=== PATIENT | female | born 1965 | race Caucasian/White ===

== ENCOUNTER 2024-01-06 13:50 | Outpatient (CLI) | payer OTHER, SELFPAY | END 2024-01-06 13:51 | disposition home or self-care (01) | PROVIDERS: Visit Provider Registered Nurse | DX: Z01.419 Encounter for gynecological examination (general) (routine) without abnormal findings (principal); N92.0 Excessive and frequent menstruation with regular cycle; Z13.6 Encounter for screening for cardiovascular disorders; Z13.1 Encounter for screening for diabetes mellitus; Z13.9 Encounter for screening, unspecified | CPT/HCPCS: 80061; 82728; 82947; 83540; 83550; 84443 ==

== ENCOUNTER 2024-01-14 15:36 | Outpatient (CLI) | payer OTHER, SELFPAY ==
--- NOTE | 2024-01-14 16:00 | US_ITS ---
Patient: GENET MOLINA Facility:?[facility] RIS Patient ID:?[id number] Site Patient ID:?[id number]. Site :?[id number] Study:?US-Pelvis TA/TV-01/14/2024 4:41:48 PM Ordering Physician:ROOPA Final Report: INDICATION: Menorrhagia COMPARISON: none TECHNIQUE: 2D franklin scale and color Doppler images were acquired of the pelvis using a transabdominal and transvaginal approach. FINDINGS: Sonographic images demonstrate a normal size and smooth outer contour of the uterus. Uterus measures 8.5 cm in length by 5.0 cm in AP diameter by 5.6 cm in transverse dimension. Cyst is present within the left uterine myometrium measuring 10 x 6 x 10 millimeters. The endometrial lining appears heterogeneous and measures 16 mm in composite thickness. The right ovary measures 4.4 x 2.1 x 2.1 cm in size and the left ovary measures 3.3 x 1.9 x 1.7 cm. The ovaries demonstrate normal arterial and venous blood flow on color Doppler analysis. There are no suspicious fluid collections within the cul-de-sac. Simple cyst right ovary measuring 2.0 x 1.9 x 1.7 cm. IMPRESSION: Heterogeneously thickened endometrium measuring 16 millimeters. Dictated by Shay Virk MD @ 01/15/2024 10:22:32 AM Signed by:?Shay Virk MD @01/15/2024 10:22:32 AM (Electronic Signature)
== END 2024-01-14 15:37 | disposition home or self-care (01) ==
LOC: US 15:38
PROVIDERS: Visit Provider Registered Nurse
DX: N92.0 Excessive and frequent menstruation with regular cycle (principal); R93.89 Abnormal findings on diagnostic imaging of other specified body structures
CPT/HCPCS: 76830; 76856

== ENCOUNTER 2024-05-11 06:06 | Day surgery (SDC) | payer OTHER, SELFPAY ==
--- OUTSIDE RECORDS SUMMARY | 2024-05-11 06:07 | XMS_ITS | Clinical Summary ---
Author Organization [employer] [facility] Address [place], [place] [address] Care Team Providers Care Clinical Material Handler Name Role Phone Pcp, No Primary Care Provider Unavailabl e Allergies No known active allergies Medications No known medications Active Problems No known active problems Social History Tobacco Use Types Packs/Day Years Used Date Smoking Tobacco: Former Smokeless Tobacco: Never Tobacco Cessation:Counseling Given: Yes Alcohol Use Standard Drinks/Week Comments Yes 0 (1 standard drink = 0.6 oz pur e alcohol) weekends Social Connections Answer Date Recorded Frequency of Communication with Friends and Fami ly Not on file 11/10/2021 Financial Resource Strain Answer Date R ecorded Difficulty of Paying Living Expenses Not on file 11/10/2021 Difficulty of Paying Living Expenses Not on file 11/10/2021 Sex and Gender Information Value Date Recorded Sex Assigned at Not on file Gender Identity Not on file Sexual Orientation Not on file Obstetrics History Last Filed Vital Signs Vital Sign Reading Time Taken Comments Blood Pressure 112/76 07/23/2023 8:03 AM CDT Pulse 80 07/23/2023 8:03 AM CDT Temperature 36.6 ??C (97.8 ??F) 10/09/2021 2:46 PM CS T Respiratory Rate - - Oxygen Saturation 100% 07/23/2023 8:03 AM CDT Inhaled Oxygen Concentration - - Weight 62.9 kg (138 lb 9.6 oz) 07/23/2023 8:03 A M CDT Height 163.8 cm (5' 4.5) 10/09/2021 2:46 PM COMMODITIES MANAGER Body Mass Index 23.42 10/09/2021 2:46 PM COMMODITIES MANAGER Plan of Treatment Health Maintenance Due Date Last Done Comments Tdap 1976 Depression screening for age 12+ 1977 HIV for age 15-65 1980 Hepatitis C screening for ag e 18-79 1983 Tetanus booster 1985 Colonoscopy through age 75 2010 Lipids for age 45-75 2010 Mammogram for age 45-75 2010 Zoster (shingles) series for age 50+ (1 of 2) 2015 BMI (ht and wt on same day) for age 18+ 10/09/2022 10/09/2021 COVID-19 vaccine series (2022- season) 2023 Pap test for age 21-65 01/26/2024 , 01/25/2021, 10/02/2020 Influenza for age 50-64 07/11/2024 Pneumococcal series for age 6-64 Aged Out No longer eligible b ased on patient's age to complete this topic Procedures Procedure Name Priority Date/Time Associated Diagnosis Comments [employer] THIN PREP PAP SCREEN IMAGED Routine 01/25/2021 9:20 AM CDT from Last 3 Months or Most Recently Relevant to Health Maintenance Results * [employer] THIN PREP PAP SCREEN IMAGED (01/25/2021 9:20 AM CDT) Case Report Gynecologic Cytology Report ? Case: [id number] ? Authorizing Provider: ??Anupama Montoya ?Collected: ? 01/25/2021 0920 ? MD Kimberley ? Ordering Location: ? [facility] ?Received: ?01/26/2021 1037 ? First Screen: ?Maile Ruby ? Specimen: ?[employer] ThinPrep Vial Screening, Cervical/Vaginal ? 02/01/2021 7:[address] [facility] INTERPRETATION/ RESULT NEGATIVE FOR INTRAEPITHELIAL LESION OR MALIGNANCY (NIL) (none) 02/01/2021 7:[address] [facility] IMEN ADEQUACY Satisfactory for evaluation No endocervical component seen 02/01/2021 7:[address] [facility] HPV REQUEST HPV and PAP 02/01/2021 7:18 PM CDT [facility] Date of LMP 01/16/2021 02/01/2021 7:18 PM CDT [facility] Last Pap Date 10/02/2020 02/01/2021 7:18 PM CDT [facility] Last Pap Result UNS 7:[address] [facility] Additional Information 02/01/2021 7:18 PM CDT [facility] Comment: Interpreted at [facility] - [address], [place] [address] Automated Review Successful 02/01/2021 7:[address] [facility] Comment:Specimen processed s uccessfully by automated automation test developer device, ThinPrep Imaging System, [employer] ANCILLARY TESTING [employer] HPV Ordered, Please see separate report 02/01/2021 7:18 PM CDT [facility] Note The pap test is a screening technique, not a diagnostic procedure. It is used primarily to screen for squamous cancers and precursor lesions. Published studies have shown that it is subject to both false negative and false positive results. The pap test should not be used as the sole means to diagnose or exclude pre-malignant and malignant lesions. 02/01/2021 7:18 PM CDT [facility] ENTRAL LAB[facility]ATORY Other (Cervical/Vagina l) 01/25/2021 9:20 AM CDT 01/26/2021 10:37 AM CDT Anupama Montoya MD PATHOLOGY/ [facility]Y [facility] [address] [place] [address], from Last 3 Months or Most Recently Relevant to Health Maintenance Care Teams Clinical Material Handler Relationship Specialty Start Date End Date Pcp, No . PCP - General 12/19/14
[2024-05-11 06:19] VITALS: BMI 23.4
[2024-05-11 06:24] LABS: Ur HCG Qualitative* Negative (Negative)
[2024-05-11 06:29] VITALS: BP 114/66; PULSE 77; RESP 16; TEMP 36.4; O2SAT 100
[2024-05-11] MEDS: LACTATED RINGERS 1000 ML 1,000 ML 100 ML IV (06:30)
[2024-05-11] MEDS: SODIUM CHLORIDE 0.9 % (FLUSH) 10 ML SYRINGE IVF (06:30)
--- NOTE | 2024-05-11 07:24 | W.PM.GYNPROC ---
Procedure Note Date of procedure: 05/11/24 Will [facility] bill your pro fee for this procedure?: Yes Pre-op diagnosis: Menorrhagia. Post-op diagnosis: Menorrhagia. Endometrial polyps. Procedure: Hysteroscopy. D&C. Polypectomies. Samara Endometrial Ablation. Anesthesia: MAC and local (paracervical block) Complications: None. Surgeon: Devi Coleman MD Estimated blood loss (mL): 5 Pathology: specimen obtained, sent to pathology (endometrial curettings) Condition: stable Disposition: same day Findings: Retroverted uterus. Multiple endometrial polyps. Procedure Description: After obtaining informed consent, the patient was taken to the operating room where she received monitored anesthesia care. She was prepared and draped in the normal sterile fashion, in the dorsal lithotomy position. An open-sided bivalve speculum was introduced into the vagina and the cervix visualized. The anterior lip of the cervix was grasped with a single-tooth tenaculum for traction. A paracervical block was then administered using a total of 20 mL of a 50/50 mixture of 0.25% Marcaine and 1% lidocaine plain. Initially, the uterus could not be sounded. Tiny cervical dilators were used to identify the endocervical canal and dilated until a small Hegar dilator could be passed through the internal cervical os. The uterus was gently sounded. Sound length was 9 cm. The cervix length was determined to be 3 cm using Hegar dilators, yielding a uterine cavity length of 6 cm. The cervix was gently dilated to a #6 Hegar dilator. A hysteroscope was then advanced under direct visualization through the cervix into the uterine cavity. Sterile normal saline was used as distending medium. The uterine cavity was carefully inspected with the findings noted above. The TruClear morcellator was passed through the hysteroscope in used to remove the polypoid tissue in its entirety. Pictures were taken for documentation purposes before and after polypectomies. The hysteroscope was then removed. The endometrial lining was then sharply curetted and a small amount of additional sample removed. The Samara device was then set to a cavity length of 6 cm, inserted through the cervical os into the uterine cavity to the level of the fundus, and deployed. The device was sealed against the cervix with 5 mL of air. The safety checks were then passed x2 and the 2-minute treatment cycle initiated. Following completion of the treatment cycle, the Samara device was removed. The hysteroscope was advanced again into the uterine cavity and the uterine cavity inspected. A good ablation was noted from the internal os to fundus and to the cornua bilaterally. Pictures were taken for documentation purposes. The hysteroscope was removed. The tenaculum was removed. The cervix was noted to be hemostatic. All instruments were then removed. The patient tolerated the procedure well. Sponge, lap, needle, and instrument counts reported as correct x2. The patient was taken to the recovery room awake in a stable condition. She received 15 mg IV Toradol at the conclusion of the procedure. Fluid deficit at the conclusion of the procedure was 70 mL. A surgical D brief was performed which confirmed the procedure, estimated blood loss, fluid deficit, and pathology specimen.
[2024-05-11] MEDS: BUPIVACAINE 0.25% 30 ML INJECTION (07:43)
[2024-05-11] MEDS: LIDOCAINE 1% MDV 20 ML INJECTION (07:43)
--- NOTE | 2024-05-11 08:10 | SUR.OPER ---
fluid deficit 70ml
--- NOTE | 2024-05-11 08:13 | W.ANESCHARGE ---
Anesthesia Charges Start Date/Time Anesthesia Start Date: 05/11/24 Anesthesia Start Time: 07:26 Stop Date/Time Anesthesia Stop Date: 05/11/24 Anesthesia Stop Time: 08:35
[2024-05-11 08:30] VITALS: BP 103/70; PULSE 67; RESP 16; TEMP 36.4; O2SAT 95
--- NOTE | 2024-05-11 08:34 | W.ANESCHARGE ---
Anesthesia Charges Start Date/Time Anesthesia Start Date: 05/11/24 Anesthesia Start Time: 07:26 Stop Date/Time Anesthesia Stop Date: 05/11/24 Anesthesia Stop Time: 08:35
[2024-05-11 08:45] VITALS: BP 99/78; PULSE 64; RESP 16; O2SAT 98
[2024-05-11 09:00] VITALS: BP 102/74; PULSE 65; RESP 16; O2SAT 98
[2024-05-11 09:15] VITALS: BP 102/65; PULSE 52; RESP 16; O2SAT 98
[2024-05-11] MEDS: METOCLOPRAMIDE HCL 5 MG/ML INJ 10 MG IVP (09:23)
== END 2024-05-11 09:35 | disposition home or self-care (01) ==
LOC: OR 06:07
PROVIDERS: Visit Provider Obstetrics & Gynecology
PROC: 0UF98ZZ Fragmentation in Uterus, Via Natural or Artificial Opening Endoscopic (ICD-10-PCS; CPT 58563; principal; 2024-05-11 07:15)
DX: N92.0 Excessive and frequent menstruation with regular cycle (principal); N84.0 Polyp of corpus uteri
CPT/HCPCS: 58563; 00952; 81025; 88305; J0665; J1885; J2250; J2704; J2765; J3010; J3490; J7120